=== PATIENT | female | born 1990 | race Two or more races ===

== ENCOUNTER 2016-11-29 06:01 | Emergency (ER) | payer MEDICAID, OTHER ==
[~2016-11-29] VITALS: Ht 162.6 cm; Wt 70.0 kg
[2016-11-29] MEDS ORDERED: IBUPROFEN 600MG TABLET PO STA (06:48)
[2016-11-29] MEDS ORDERED: SODIUM CHLORIDE 0.9% 1,000 ML IV ONE (06:48)
[2016-11-29] MEDS ORDERED: HYDROCODONE/ACETAMINOPHEN 5/325MG TABLET PO ONE (07:00)
[2016-11-29 08:04] LABS: HEMATOCRIT. 42.3 % (36.0-48.0); HEMOGLOBIN. 14.5 g/dL (12.0-16.0); MEAN CORPUSCULAR HEMOGLOBIN 30.4 pg (28.0-32.0); MEAN CORPUSCULAR VOLUME 88.4 fL (81.0-99.0); MEAN PLATELET VOLUME 9.7 fl (7.4-10.4); PLATELET 195 x1000/uL (130-400); RED BLOOD CELL COUNT 4.78 mill/uL (4.2-5.4); RED CELL DISTRIBUTION WIDTH 12.4 % (11.6-14.6)
[2016-11-29 08:15] LABS: HCG SCREEN NEGATIVE
[2016-11-29 08:20] LABS: CLARITY URINE CLEAR (CLEAR); COLOR URINE YELLOW (YELLOW); GLUCOSE URINE 3+ (NEGATIVE); KETONES URINE TRACE (NEGATIVE); LEUKOCYTE ESTERASE URINE TRACE (NEGATIVE); NITRITE URINE POSITIVE (NEGATIVE); OCCULT BLOOD URINE 2+ (NEGATIVE); PH URINE 5.5 (4.5-8.0); PROTEIN URINE 1+ (NEGATIVE); SPECIFIC GRAVITY URINE 1.037 (1.005-1.030); UROBILINOGEN URINE 0.2 E.U./dL (0.2-1.0)
[2016-11-29 08:21] LABS: CARBON DIOXIDE 21 mEq/L (21-32); CHLORIDE 106 mEq/L (98-107)
[2016-11-29 08:38] LABS: PLATELET ESTIMATE NORMAL
[2016-11-29] MEDS ORDERED: CEFTRIAXONE 1 G PREMIX 50 ML IV ONE (08:45)
[2016-11-29] MEDS ORDERED: AZITHROMYCIN 500 MG TABLET PO ONE (08:45)
[2016-11-29] MEDS ORDERED: LACTATED RINGERS 3,000 ML IV SCH (08:45)
[2016-11-29 12:56] VITALS: BP 121/78
== END 2016-11-29 13:41 | disposition home or self-care (01) ==
LOC: ER 06:01
DX: N39.0 Urinary tract infection, site not specified (principal); M54.40 Lumbago with sciatica, unspecified side; E11.9 Type 2 diabetes mellitus without complications; M79.605 Pain in left leg
CPT/HCPCS: 36415; 80053; 81001; 82962; 84703; 85025; 93971; 96361; 96365; 99285; J0696; J7030; J7120; Z7610

== ENCOUNTER 2018-08-23 23:32 | Emergency (ER) | payer MEDICAID, OTHER ==
[~2018-08-23] VITALS: Ht 162.6 cm; Wt 66.0 kg
[2018-08-24] MEDS ORDERED: HYDROCODONE/ACETAMINOPHEN 5/325MG TABLET PO STA (02:12)
[2018-08-24 03:00] LABS: CHLORIDE 106 mEq/L (98-107)
[2018-08-24 03:01] LABS: BASOPHILS % 0.6 % (0.0-2.0); EOSINOPHILS % 0.7 % (0.0-5.0); HCG SCREEN NEGATIVE; HEMATOCRIT. 41.6 % (36.0-48.0); HEMOGLOBIN. 14.6 g/dL (12.0-16.0); MEAN CORPUSCULAR HEMOGLOBIN 31.1 pg (28.0-32.0); MEAN CORPUSCULAR VOLUME 88.8 fL (81.0-99.0); MEAN PLATELET VOLUME 9.3 fl (7.4-10.4); MONOCYTES % 7.1 % (2.0-8.0); NEUTROPHILS % 54.6 % (40.0-76.0); PLATELET 264 x1000/uL (130-400); RED BLOOD CELL COUNT 4.68 mill/uL (4.2-5.4); RED CELL DISTRIBUTION WIDTH 12.5 % (11.6-14.6)
[2018-08-24] MEDS ORDERED: IOHEXOL-300 100 ML BOTTLE ONE (04:31)
[2018-08-24 05:11] VITALS: BP 120/78
== END 2018-08-24 05:11 | disposition home or self-care (01) ==
LOC: ER 23:32
DX: S80.01XA Contusion of right knee, initial encounter (principal); E11.9 Type 2 diabetes mellitus without complications; I10 Essential (primary) hypertension; R10.11 Right upper quadrant pain; R10.31 Right lower quadrant pain; V49.49XA Driver injured in collision with other motor vehicles in traffic accident, initial encounter; Y93.89 Activity, other specified; Y92.89 Other specified places as the place of occurrence of the external cause; Y99.8 Other external cause status
CPT/HCPCS: 36415; 73560; 74177; 80053; 81025; 84703; 85025; 99284; Q9967

== ENCOUNTER 2019-01-14 10:42 | Emergency (ER) | payer MEDICAID, OTHER ==
[~2019-01-14] VITALS: Ht 162.6 cm; Wt 77.0 kg
[2019-01-14] MEDS ORDERED: KETOROLAC 60MG/2ML VIAL IM ONE (11:15)
[2019-01-14 11:29] VITALS: BP 136/80
== END 2019-01-14 12:50 | disposition home or self-care (01) ==
LOC: ER 10:42
DX: M25.572 Pain in left ankle and joints of left foot (principal); I10 Essential (primary) hypertension; E11.9 Type 2 diabetes mellitus without complications; X50.1XXA Overexertion from prolonged static or awkward postures, initial encounter; Y93.89 Activity, other specified; Y92.018 Other place in single-family (private) house as the place of occurrence of the external cause
CPT/HCPCS: 29515; 73610; 96372; 99283; J1885; L1830

== ENCOUNTER 2022-01-15 23:20 | Emergency (ER) | payer OTHER ==
[~2022-01-15] VITALS: Ht 162.6 cm; Wt 70.0 kg
[~2022-01-15 23:20] MED LIST: NITR-87 MT
[2022-01-16] MEDS ORDERED: NITR-87 MT (00:39)
[2022-01-16 00:50] VITALS: BP 118/78
== END 2022-01-16 00:51 | disposition home or self-care (01) ==
LOC: ER 23:20
DX: N39.0 Urinary tract infection, site not specified (principal); E11.9 Type 2 diabetes mellitus without complications; E78.00 Pure hypercholesterolemia, unspecified; I10 Essential (primary) hypertension
CPT/HCPCS: 81025; 99282